=== PATIENT | female | born 1990 | race Caucasian/White ===

== ENCOUNTER 2018-07-25 03:37 | Emergency (ER) | payer OTHER ==
[~2018-07-25] VITALS: Ht 157.5 cm; Wt 47.6 kg
[2018-07-25 04:07] LABS: *BILIRUBIN,URIN 1+ (NEGATIVE); *BLOOD, URINE NEGATIVE (NEGATIVE); *COLOR,URINE YELLOW (YELLOW); *KETONES,URINE TRACE (NEGATIVE); *UROBILINOGEN,URINE 0.2 E.U./dl (NORMAL); LEUKOCYTE ESTERASE ,URINE NEGATIVE (NEGATIVE); NITRITE, URINE NEGATIVE (NEGATIVE); PH,URINE 5.5 (5.0-8.0); UGLUCOSE NEGATIVE (NEGATIVE)
[2018-07-25 04:13] LABS: BASOPHILS % (AUTO) 0.5 % (0.0-2.0); EOSINOPHILS # (AUTO) 0.1 K/uL (0.0-0.7); EOSINOPHILS % (AUTO) 1.5 % (0.0-7.0); HEMATOCRIT 39.7 % (31.2-41.9); HEMOGLOBIN 13.4 g/dL (10.9-14.3); LYMPHOCYTES # (AUTO) 2.5 K/uL (20.0-40.0); LYMPHOCYTES % (AUTO) 29.7 % (20.5-51.5); MEAN CORPUSCULAR HEMOGLOBIN 30.3 uug (24.7-32.8); MEAN CORPUSCULAR HGB CONC 34 g/dL (32.3-35.6); MEAN CORPUSCULAR VOLUME 89.7 fL (75.5-95.3); MONOCYTES # (AUTO) 0.4 K/uL (2.0-10.0); MONOCYTES % (AUTO) 4.4 % (0.0-11.0); NEUTROPHILS # (AUTO) 5.4 K/uL (1.8-8.9); NEUTROPHILS % (AUTO) 63.9 % (38.5-71.5); PLATELET COUNT (AUTO) 211 K/uL (179-408); RED BLOOD CELL COUNT(AUTO) 4.42 MIL/uL (3.63-4.92); WHITE BLOOD COUNT (AUTO) 8.4 K/uL (3.8-11.8)
[2018-07-25 04:25] LABS: *CLARITY,URINE HAZY (CLEAR)
[2018-07-25 04:27] LABS: BACTERIA,URINE FEW /HPF (NONE SEEN); MUCUS,URINE MODERATE /LPF (0-FEW); RBC,URINE 0-3 /HPF (0-3); SQUAMOUS EPITHELIAL CELL,UR MODERATE /HPF (NONE SEEN); WBC,URINE 0-3 /HPF (0-3)
--- NOTE | 2018-07-25 04:30 | NUR ---
US tech paged and awaiting arrival at this time.
[2018-07-25 04:31] LABS: *AMPHETAMINE, URINE POSITIVE (NEGATIVE); *BARBITURATE, URINE NEGATIVE (NEGATIVE); *CANNABINOID, URINE NEGATIVE (NEGATIVE); *COCCAINE, URINE NEGATIVE (NEGATIVE); *OPIATE, URINE NEGATIVE (NEGATIVE); *PHENCYCLIDINE SCREEN,URINE NEGATIVE (NEGATIVE)
[2018-07-25 04:54] LABS: BILIRUBIN,DIRECT 0.1 mg/dL (0.0-0.2); BILIRUBIN,TOTAL 0.3 mg/dL (0.2-1.0); CREATININE 0.6 mg/dL (0.6-1.3); POTASSIUM 3.4 mmol/L (3.5-5.1); TOTAL PROTEIN, SERUM 7.5 g/dL (6.4-8.2)
--- NOTE | 2018-07-25 05:33 | NUR ---
Female director of program management accompanied female patient for legal technician during ultrasound.
--- NOTE | 2018-07-25 05:42 | NUR ---
Patient does not wish to proceed with medical care recommended by Dr. Elizalde. Patient given information related to possible complications, up to and including , which could occur as a result of leaving the hospital at this time. Patient verbalizes understanding of risks involved due to leaving against medical advice. Patient has signed AMA form.
== END 2018-07-25 05:44 | disposition left against medical advice (07) ==
LOC: ER 03:40
DX: O03.9 Complete or unspecified spontaneous abortion without complication (principal); F15.10 Other stimulant abuse, uncomplicated
CPT/HCPCS: 36415; 76856; 80307; 85025; 85730; 86900; 86901; 87210; A4663

== ENCOUNTER 2018-09-16 18:17 | Emergency (ER) | payer OTHER ==
[~2018-09-16] VITALS: Ht 157.5 cm; Wt 47.6 kg
[2018-09-16] MEDS ORDERED: AMOX500C2 PO (18:29)
[2018-09-16 19:19] LABS: BASOPHILS % (AUTO) 0.4 % (0.0-2.0); EOSINOPHILS # (AUTO) 0.2 K/uL (0.0-0.7); EOSINOPHILS % (AUTO) 1.4 % (0.0-7.0); HEMATOCRIT 36.5 % (31.2-41.9); HEMOGLOBIN 12.1 g/dL (10.9-14.3); LYMPHOCYTES # (AUTO) 1.8 K/uL (20.0-40.0); LYMPHOCYTES % (AUTO) 15.4 % (20.5-51.5); MEAN CORPUSCULAR HEMOGLOBIN 29.8 uug (24.7-32.8); MEAN CORPUSCULAR HGB CONC 33 g/dL (32.3-35.6); MEAN CORPUSCULAR VOLUME 89.8 fL (75.5-95.3); MONOCYTES # (AUTO) 0.5 K/uL (2.0-10.0); MONOCYTES % (AUTO) 4.2 % (0.0-11.0); NEUTROPHILS % (AUTO) 78.6 % (38.5-71.5); PLATELET COUNT (AUTO) 210 K/uL (179-408); RED BLOOD CELL COUNT(AUTO) 4.07 MIL/uL (3.63-4.92); WHITE BLOOD COUNT (AUTO) 11.4 K/uL (3.8-11.8)
[2018-09-16] MEDS ORDERED: MORPHINE SULFATE 4 MG/1 ML DISP.SYRIN ONE (19:21)
[2018-09-16] MEDS ORDERED: ONDANSETRON 4 MG/2 ML VIAL ONE (19:21)
[2018-09-16] MEDS: IV NORMAL SALINE 1000 ML BAG IV ONE ×2 (19:22→22:10)
--- NOTE | 2018-09-16 19:23 | NUR ---
Radiology called for US, [facility] [employer] will be coming. No given ETA
[2018-09-16] MEDS: MORPHINE SULFATE 2 MG/1 ML DISP.SYRIN IV ONE (19:25)
[2018-09-16] MEDS: ONDANSETRON 4 MG/2 ML VIAL IV ONE (19:25)
[2018-09-16 19:26] LABS: CARBON DIOXIDE 29 mmol/L (21-32); CHLORIDE 101 mmol/L (98-107); CREATININE 0.5 mg/dL (0.6-1.3); GLUCOSE 92 mg/dL (74-106); POTASSIUM 3.8 mmol/L (3.5-5.1); UREA NITROGEN, BLOOD 7 mg/dL (7-18)
--- NOTE | 2018-09-16 19:30 | NUR ---
PT IS IN ROOM #1B. DR PALUMBO EVALUATED THE PT.
[2018-09-16 19:32] LABS: ALANINE AMINOTRANSFERASE 31 U/L (14-59); ALKALINE PHOSPHATASE 105 U/L (50-136); ASPARTATE AMINOTRANSFERASE 22 U/L (15-37); BILIRUBIN,DIRECT 0.1 mg/dL (0.0-0.2); BILIRUBIN,TOTAL 0.3 mg/dL (0.2-1.0); LIPASE 73 U/L (73-393); TOTAL PROTEIN, SERUM 7.1 g/dL (6.4-8.2)
[2018-09-16] MEDS ORDERED: FENTANYL CITRATE 100 MCG/2 ML AMPUL ONE (20:08)
[2018-09-16] MEDS: FENTANYL CITRATE 100 MCG/2 ML AMPUL IV ONE (20:11)
[2018-09-16] MEDS ORDERED: SWABABLE VALVE TRANSFER SET EA MC ONE (21:50)
[2018-09-16] MEDS ORDERED: NORMAL SALINE FLUSH 10 ML DISP.SYRIN ONE (21:50)
[2018-09-16] MEDS ORDERED: IV NORMAL SALINE 250 ML IV ONE (21:50)
[2018-09-16] MEDS ORDERED: IOHEXOL 300MG/ML 100 ML INFUS..BTL ONE (21:50)
[2018-09-16] MEDS: HYDROMORPHONE 1 MG/1 ML DISP.SYRIN IV ONE (22:10)
[2018-09-16] MEDS ORDERED: HYDROMORPHONE 1 MG/1 ML DISP.SYRIN ONE (22:13)
--- NOTE | 2018-09-16 23:25 | NUR ---
PT WAS D/C'd TO HOME. D/C INSTRUCTIONS GIVEN TO THE PT.
[2018-09-16 23:26] VITALS: BP 122/70
== END 2018-09-16 23:26 | disposition home or self-care (01) ==
LOC: ER 18:17
DX: N92.0 Excessive and frequent menstruation with regular cycle (principal); Z79.899 Other long term (current) drug therapy
CPT/HCPCS: 36415; 74177; 76856; 80048; 80076; 83690; 84484; 84702; 85025; 96374; 96375; 99284; J1170; J2270; J2405; J3010; Q9967; 70030-TC; A4663; J3490; J7030; J7050

== ENCOUNTER 2018-12-29 22:39 | Emergency (ER) | payer OTHER ==
[~2018-12-29] VITALS: Ht 157.5 cm; Wt 49.9 kg
[~2018-12-29 22:39] MED LIST: AMOX500C2 PO
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
--- NOTE | 2018-12-30 00:10 | NUR ---
Patient transferred to CT in stable condition.
--- NOTE | 2018-12-30 00:24 | NUR ---
Patient back in room from CT
--- NOTE | 2018-12-30 01:00 | NUR ---
Patient eloped from facility. ER physician notified and aware.
== END 2018-12-30 01:00 | disposition left against medical advice (07) ==
LOC: ER 22:41
DX: S06.0X0A Concussion without loss of consciousness, initial encounter (principal); S00.33XA Contusion of nose, initial encounter; Z79.2 Long term (current) use of antibiotics; V49.9XXA Car occupant (driver) (passenger) injured in unspecified traffic accident, initial encounter; Y93.89 Activity, other specified; Y92.89 Other specified places as the place of occurrence of the external cause; Y99.8 Other external cause status
CPT/HCPCS: 70450; A4663

== ENCOUNTER 2019-09-18 07:30 | Emergency (ER) | payer OTHER ==
[~2019-09-18] VITALS: Ht 157.5 cm; Wt 54.4 kg
--- NOTE | 2019-09-18 08:14 | NUR ---
Patient discharged to home in stable condition. Written and verbal after care instructions given. Patient verbalizes understanding of instructions. Stressed follow up or return to ER in 2 days or for worsening s/s.
[2019-09-18] MEDS ORDERED: LIDOCAINE HCL 2% 20 ML VIAL TP ONE (08:15)
== END 2019-09-18 08:15 | disposition home or self-care (01) ==
LOC: ER 07:30
DX: L02.01 Cutaneous abscess of face (principal)
CPT/HCPCS: 10060; 99282; J3490; A4663